=== PATIENT | male | born 1965 | race Caucasian/White ===

== ENCOUNTER → 2024-01-10 07:43 | Outpatient (REF) | payer OTHER, SELFPAY ==
[2024-01-10 09:39] LABS: % Basophils 0.5 % (0-2); % Eosinophils 1.7 % (0-6); % Immature Granulocytes 0.3 % (0-0.5); % Lymphocytes 14.6 % (20.5-51.1); % Monocytes 11.7 % (1.7-9.3); % Neutrophils 71.2 % (42.2-75.2); Absolute Eosinophils 0.1 10^3/uL (0-0.7); Absolute Lymphocytes 1.1 10^3/uL (1.2-3.4); Absolute Monocytes 0.9 10^3/uL (0.1-0.6); Absolute Neutrophils 5.4 10^3/uL (1.4-6.5); Hematocrit 44.5 % (39.0-52.0); Hemoglobin 15.1 g/dL (13.0-18.0); Mean Corp Hgb Conc. 33.9 g/dL (33.0-37.0); Mean Corpuscular Hgb 31.5 pg (27.0-31.0); Mean Corpuscular Volume 92.7 fL (80.0-94.0); Mean Platelet Volume 12.1 fL (7.4-10.4); Nucleated Red Blood Cells % 0 % (-); Platelet Count 152 10^3/uL (130-400); Red Cell Dist. Width 13.1 % (11.5-14.5); White Blood Cell Count 7.6 10^3/uL (4.8-10.8)
[2024-01-10 09:52] LABS: ALT (SGPT) 56 U/L (0-50); AST (SGOT) 33 U/L (17-59); Albumin 4.7 g/dl (3.5-5.0); Alkaline Phosphatase 81 U/L (38-126); Blood Urea Nitrogen 21 mg/dl (9-20); Carbon Dioxide 28 mmol/L (22-30); Chloride 106 mmol/L (98-107); Glucose 100 mg/dl (70-99); HDL Cholesterol 39 mg/dl; LDL Cholesterol, Calculated 150 mg/dl; Potassium 4.9 mmol/L (3.5-5.1); Sodium 142 mmol/L (135-145); Total Bilirubin 0.7 mg/dl (0.2-1.3); Total Cholesterol 223 mg/dl (50-199); Total Protein 7.8 g/dl (6.3-8.2); Triglyceride 172 mg/dl (10-149); Very Low Density Lipoprotein 34 mg/dl (0-30); eGFR > 60.00
[2024-01-10 10:22] LABS: PSA, Total - Screen 1.03 ng/ml (0.0-4.0); TSH Reflex To Free T4 1.29 uIU/ml (0.47-4.68)
== END ==
LOC: HWLAB 07:43
PROVIDERS: ATTENDING PHYSICIAN Nurse Practitioner
DX: Z00.00 Encounter for general adult medical examination without abnormal findings (principal); Z12.5 Encounter for screening for malignant neoplasm of prostate
CPT/HCPCS: 36415; 80053; 80061; 84443; 85025; G0103

== ENCOUNTER → 2024-03-27 07:24 | Outpatient (REF) | payer BC, SELFPAY ==
[2024-03-27 10:18] LABS: ALT (SGPT) 35 U/L (0-50); AST (SGOT) 34 U/L (17-59); HDL Cholesterol 44 mg/dl; LDL Cholesterol, Calculated 102 mg/dl; Total Cholesterol 170 mg/dl (50-199); Triglyceride 120 mg/dl (10-149); Very Low Density Lipoprotein 24 mg/dl (0-30)
== END ==
LOC: HWLAB 07:24
PROVIDERS: ATTENDING PHYSICIAN Nurse Practitioner
DX: E78.2 Mixed hyperlipidemia (principal)
CPT/HCPCS: 36415; 80061; 84450; 84460

== ENCOUNTER → 2024-05-08 06:31 | Outpatient (REF) | payer BC, SELFPAY ==
[2024-05-08 09:47] LABS: ALT (SGPT) 30 U/L (0-50); AST (SGOT) 26 U/L (17-59); HDL Cholesterol 40 mg/dl; LDL Cholesterol, Calculated 144 mg/dl; Total Cholesterol 225 mg/dl (50-199); Triglyceride 205 mg/dl (10-149); Very Low Density Lipoprotein 41 mg/dl (0-30)
== END ==
LOC: HWLAB 06:31
DX: E78.2 Mixed hyperlipidemia (principal)
CPT/HCPCS: 36415; 80061; 84450; 84460

== ENCOUNTER 2025-04-04 10:22 | Emergency (ER) | payer BC, SELFPAY ==
[2025-04-04 10:25] VITALS: BP 129/85
--- NOTE | 2025-04-04 11:23 | ED.GENMED ---
History of Present Illness
General
Chief Complaint: Musculo-Skeletal Complaint
Time Seen by Provider: 04/04/25 10:52
Past History
Past History
ED Past Medical History: None
ED Past Surgical History: None
Social History
Tobacco: Non-smoker
Alcohol: None
Living: with family
Course
Orders/Labs/Results
Orders:
Orders
04/04/25 10:31
CR Finger(s)/thumb Min 2 Vw Lt Urgent
Comment:
Reason For Exam: pain injury L thumb, decreased ROM
Indicate Which Finger:: Thumb
04/04/25 10:54
Hand, Left 3 View [CR Hand - Left Min 3 Views] Urgent
Comment:
Reason For Exam: left hand pain fall
Wrist, Left 3 Views CR [CR Wrist - Left Min 3 Views] Urgent
Comment:
Reason For Exam: L wrist pain after all
Vital Signs
Initial and Last Documented VS:
Initial Vital Signs
Temp Pulse Resp BP Pulse Ox
36.9 C 76 16 129/85 96
04/04/25 10:25 04/04/25 10:25 04/04/25 10:25 04/04/25 10:25 04/04/25 10:25
Last Documented Vital Signs
Temp Pulse Resp BP Pulse Ox
36.9 C 76 16 129/85 96
04/04/25 10:25 04/04/25 10:25 04/04/25 10:25 04/04/25 10:25 04/04/25 10:25
MDM/Problems Addressed
Differential Diagnosis Includes:
see MDM
MDM/Problems Addressed:
Note:
CHIEF COMPLAINT(S)
Pain in the wrist and finger following a fall.
HISTORY OF PRESENT ILLNESS
The patient is a 59-year-old male R hand dominant who presents with L thumb pain after falling to the ground while [place] The patient reports that both wrists were involved in the fall, but only the Left hand is
symptomatic. He describes clicking and occasional sticking in the affected wrist, which is a new development for him, stating, 'Yes, it clicks. Is it normally do that? No.'
he has no swelling, numbness, tingling, weakness
he feel that when he tries to flex the MCP joint and the IPJ joint that they get stuck and click
pt can fully flex and extend
PAST MEDICAL AND SURIGICAL HISTORY
Shoulder problems mentioned as chronic, and the patient had been evaluated by [facility] approximately three or four years ago.
SOCIAL HISTORY
The patient eats a diet rich in fruits and vegetables and denies taking any medications.
MEDICATIONS
The patient denies the use of any current medications and reports being healthy, without medications for chronic conditions like heart disease, cholesterol, or hypertension.
PHYSICAL EXAM
GENERAL: Alert , in no apparent distress, comfortable at rest
HEAD: NCAT
CV: 2+ radial pulse, cap refill intact
NEUROLOGICAL: Alert and oriented, no focal neuro deficits, , 5/5 strength, sensation intact, ambulation slight limp right leg
SKIN: Warm and dry,
MUSCULOSKELETAL:normal inspection L thumb/hand
pt has tenderness 1ST MCP joint and prox phalanx of thumb
he can fully flex the IPJ but then it gets stuck in flexion and needs to be passively extended
he can also ADDUCT the thumb but it clicks
no tendneress to wrist, scaphoid, forearm, elbow
PSYCH: Normal and appropriate interaction.
PLAN
The patient will be provided with a brace for immobilization of the affected wrist and referred to a hand specialist for further evaluation. Recommendations include resources for [facility] or [facility]. Ibuprofen or acetaminophen is
advised for pain management if needed.
DIFFERENTIAL DIAGNOSIS
The Differential Diagnosis includes, in no particular order and is not limited to:
- Tendinitis
- Trigger finger
- Sprain or strain of wrist
- Tenosynovitis
- Carpal tunnel syndrome
- De Quervains tenosynovitis
- Ligamentous injury
- Joint instability
- Osteoarthritis
- Fracture (despite initial negative findings)
*Pulse Oximetry
SaO2: 96
Oxygen Mode of Delivery: Room air
ED Attending Note
-
Portions of this chart may have been created with voice recognition software.� Occasional wrong word or��sound alike� substitutions may have occurred due to the inherent limitations of voice recognition software.
Discharge Plan
Departure
Patient Disposition: Home (Routine Discharge)
Date of Disposition: 04/04/25
Time of Disposition: :26
Patient with high blood pressure during this ER visit?: No
Condition: Fair
Covid-19: Not Applicable
Discharge Problem:
Left thumb sprain, Trigger finger
Instructions: Sprain (DC), Trigger finger
Prescriptions:
No Action
acetaminophen [acetaminophen] 325 mg tablet
650 mg PO Q4HPRN PRN (Reason: mild pain) Qty: 1 0RF
ibuprofen 200 mg tablet
400 - 600 mg PO Q6HPRN PRN (Reason: moderate pain) Qty: 1 0RF
oxycodone 5 mg tablet
5 mg PO Q4HPRN PRN (Reason: breakthrough/severe pain) Qty: 5 0RF
Referrals:
Brock Reeder MD [Active, Orthopedics] - Follow up in 5-7 days
Werner Harvey MD [Active, Orthopedics]
Activity Restrictions/Additional Instructions:
Wear the splint until you follow-up with the specialist. Call tomorrow for an appointment with the hand doctor. You can take ibuprofen or Tylenol for pain. It is likely a trigger finger which could be a tendon injury. There is no x-ray findings
to suggest a broken bone. Return for any concerns
Interventions
Interventions:
*Risk Screen - Suicide Last Done: 04/04/25 10:28
*General Assessment Last Done: 04/04/25 10:28
*Neglect/Abuse Screening Last Done: 04/04/25 10:28
Discharge Date and Time
Print Language: SAO TOMEAN
== END 2025-04-04 11:59 | disposition home or self-care (01) ==
LOC: EMR 10:22
PROVIDERS: EMERGENCY PHYSICIAN Student in an Organized Health Care Education/Training Program
DX: S63.602A Unspecified sprain of left thumb, initial encounter (principal); M65.30 Trigger finger, unspecified finger; W01.0XXA Fall on same level from slipping, tripping and stumbling without subsequent striking against object, initial encounter; Y93.K1 Activity, walking an animal
CPT/HCPCS: 99283; 73110; 73130; 73140